=== PATIENT | male | born 1965 | race African-American/Black ===

== ENCOUNTER 2019-02-27 16:09 | Inpatient (IN) | payer MEDICARE, MEDICAID ==
[~2019-02-27] VITALS: Ht 170.2 cm; Wt 59.4 kg
[2019-02-27 17:15] VITALS: BP 122/87
[2019-02-27] MEDS ORDERED: MAG HYDROX/AL HYDROX/SIMETH 30 ML LIQUID UDC PO PRN (17:30)
[2019-02-27] MEDS ORDERED: TEMAZEPAM 7.5 MG CAPSULE PO PRN (17:30)
[2019-02-27] MEDS ORDERED: ACETAMINOPHEN 325 MG TABLET PO PRN (17:30)
[2019-02-27] MEDS ORDERED: MAGNESIUM HYDROXIDE 30 ML LIQUID UDC PO PRN (17:30)
[2019-02-27 21:09] VITALS: BP 114/67
[2019-02-28 07:09] LABS: BASOPHILS % (AUTO) 0.5 % (0.0-2.0); EOSINOPHILS # (AUTO) 0.1 K/uL (0.0-0.7); EOSINOPHILS % (AUTO) 1.5 % (0.0-7.0); HEMATOCRIT 37.6 % (36.7-47.1); HEMOGLOBIN 12.4 g/dL (12.5-16.3); LYMPHOCYTES # (AUTO) 1.3 K/uL (20.0-40.0); LYMPHOCYTES % (AUTO) 35.3 % (20.5-51.5); MEAN CORPUSCULAR HEMOGLOBIN 29.9 uug (23.8-33.4); MEAN CORPUSCULAR HGB CONC 33 g/dL (32.5-36.3); MEAN CORPUSCULAR VOLUME 90.7 fL (73.0-96.2); MONOCYTES # (AUTO) 0.3 K/uL (2.0-10.0); MONOCYTES % (AUTO) 8.1 % (0.0-11.0); NEUTROPHILS # (AUTO) 2.1 K/uL (1.8-8.9); NEUTROPHILS % (AUTO) 54.6 % (38.5-71.5); PLATELET COUNT (AUTO) 292 K/uL (152-348); RED BLOOD CELL COUNT(AUTO) 4.15 MIL/uL (4.06-5.63); WHITE BLOOD COUNT (AUTO) 3.8 K/uL (3.6-10.2)
[2019-02-28 07:17] LABS: POTASSIUM 3.8 mmol/L (3.5-5.1)
[2019-02-28 07:30] VITALS: BP 141/86
[2019-02-28] MEDS: DIVALPROEX SPRINKLE 125 MG CAP.SPRINK PO SCH ×2 (11:43→20:04)
[2019-02-28] MEDS: OLANZAPINE ZYDIS 5 MG TAB.RAPDIS PO SCH ×2 (11:43→18:03)
[2019-02-28] MEDS: LORAZEPAM 0.5 MG TABLET PO PRN (14:03)
[2019-02-28 16:00] VITALS: BP 119/56
[2019-02-28 20:00] VITALS: BP 110/67
[2019-03-01] MEDS: LORAZEPAM 0.5 MG TABLET PO PRN ×2 (06:13→14:23)
[2019-03-01 07:30] VITALS: BP 110/73
[2019-03-01] MEDS: DIVALPROEX SPRINKLE 125 MG CAP.SPRINK PO SCH ×2 (08:10→20:15)
[2019-03-01] MEDS: OLANZAPINE ZYDIS 5 MG TAB.RAPDIS PO SCH ×2 (08:10→16:47)
[2019-03-01 15:45] VITALS: BP 108/47
[2019-03-01 21:11] VITALS: BP 112/69
[2019-03-02 07:30] VITALS: BP 130/57
[2019-03-02] MEDS: OLANZAPINE ZYDIS 5 MG TAB.RAPDIS PO SCH ×2 (08:49→17:36)
[2019-03-02] MEDS: DIVALPROEX SPRINKLE 125 MG CAP.SPRINK PO SCH ×3 (08:49→17:37)
[2019-03-02 15:11] VITALS: BP 103/61
[2019-03-02 20:00] VITALS: BP 118/73
[2019-03-03 07:30] VITALS: BP 119/71
[2019-03-03] MEDS: DIVALPROEX SPRINKLE 125 MG CAP.SPRINK PO SCH ×3 (08:33→20:24)
[2019-03-03] MEDS: OLANZAPINE ZYDIS 5 MG TAB.RAPDIS PO SCH ×2 (08:33→20:25)
[2019-03-03 15:17] VITALS: BP 130/83
[2019-03-03 20:00] VITALS: BP 132/76
[2019-03-04 07:30] VITALS: BP 132/82
[2019-03-04] MEDS: DIVALPROEX SPRINKLE 125 MG CAP.SPRINK PO SCH ×3 (08:30→20:46)
[2019-03-04] MEDS: OLANZAPINE ZYDIS 5 MG TAB.RAPDIS PO SCH (08:30)
[2019-03-04 16:12] VITALS: BP 109/61
[2019-03-04 20:04] VITALS: BP 129/73
[2019-03-04] MEDS: OLANZAPINE 5 MG TABLET PO SCH (20:46)
[2019-03-04] MEDS: ATORVASTATIN 10 MG TABLET PO SCH (20:46)
[2019-03-05 07:30] VITALS: BP 135/69
[2019-03-05] MEDS: OLANZAPINE ZYDIS 5 MG TAB.RAPDIS PO SCH (09:50)
[2019-03-05] MEDS: DIVALPROEX SPRINKLE 125 MG CAP.SPRINK PO SCH ×3 (09:50→20:17)
[2019-03-05 16:00] VITALS: BP 97/52
[2019-03-05] MEDS: ATORVASTATIN 10 MG TABLET PO SCH (20:16)
[2019-03-05] MEDS: OLANZAPINE 5 MG TABLET PO SCH (20:17)
[2019-03-05 21:34] VITALS: BP 130/83
[2019-03-06 07:30] VITALS: BP 124/82
[2019-03-06] MEDS: DIVALPROEX SPRINKLE 125 MG CAP.SPRINK PO SCH ×3 (08:35→20:21)
[2019-03-06] MEDS: OLANZAPINE ZYDIS 5 MG TAB.RAPDIS PO SCH (08:35)
[2019-03-06 13:53] LABS: *BILIRUBIN,URIN NEGATIVE (NEGATIVE); *BLOOD, URINE NEGATIVE (NEGATIVE); *CLARITY,URINE CLEAR (CLEAR); *COLOR,URINE YELLOW (YELLOW); *KETONES,URINE NEGATIVE (NEGATIVE); *UROBILINOGEN,URINE 0.2 E.U./dl (NORMAL); LEUKOCYTE ESTERASE ,URINE NEGATIVE (NEGATIVE); NITRITE, URINE NEGATIVE (NEGATIVE); UGLUCOSE NEGATIVE (NEGATIVE)
[2019-03-06 16:07] VITALS: BP 115/66
[2019-03-06] MEDS: OLANZAPINE 5 MG TABLET PO SCH (20:21)
[2019-03-06] MEDS: ATORVASTATIN 10 MG TABLET PO SCH (20:21)
[2019-03-06 22:36] VITALS: BP 132/83
[2019-03-07 07:30] VITALS: BP 131/80
[2019-03-07] MEDS: DIVALPROEX SPRINKLE 125 MG CAP.SPRINK PO SCH ×3 (08:59→21:00)
[2019-03-07] MEDS: OLANZAPINE ZYDIS 5 MG TAB.RAPDIS PO SCH (09:00)
[2019-03-07 16:00] VITALS: BP 117/81
[2019-03-07 19:49] VITALS: BP 125/75
[2019-03-07] MEDS: ATORVASTATIN 10 MG TABLET PO SCH (21:00)
[2019-03-07] MEDS: OLANZAPINE 5 MG TABLET PO SCH (21:00)
[2019-03-08 07:30] VITALS: BP 140/79
[2019-03-08] MEDS: DIVALPROEX SPRINKLE 125 MG CAP.SPRINK PO SCH ×3 (08:20→21:08)
[2019-03-08] MEDS: OLANZAPINE ZYDIS 5 MG TAB.RAPDIS PO SCH (08:20)
[2019-03-08 16:00] VITALS: BP 119/65
[2019-03-08 19:49] VITALS: BP 114/70
[2019-03-08] MEDS: OLANZAPINE 5 MG TABLET PO SCH (21:08)
[2019-03-08] MEDS: ATORVASTATIN 10 MG TABLET PO SCH (21:08)
[2019-03-09 07:40] VITALS: BP 121/80
[2019-03-09] MEDS: DIVALPROEX SPRINKLE 125 MG CAP.SPRINK PO SCH ×3 (08:12→20:35)
[2019-03-09] MEDS: OLANZAPINE ZYDIS 5 MG TAB.RAPDIS PO SCH (08:12)
[2019-03-09 15:34] VITALS: BP 106/52
[2019-03-09 19:44] VITALS: BP 111/75
[2019-03-09] MEDS: ATORVASTATIN 10 MG TABLET PO SCH (20:35)
[2019-03-09] MEDS: OLANZAPINE 5 MG TABLET PO SCH (20:35)
[2019-03-10 07:30] VITALS: BP 128/85
[2019-03-10] MEDS: DIVALPROEX SPRINKLE 125 MG CAP.SPRINK PO SCH ×4 (08:31→23:30)
[2019-03-10] MEDS: OLANZAPINE ZYDIS 5 MG TAB.RAPDIS PO SCH (08:31)
[2019-03-10] MEDS: LORAZEPAM 0.5 MG TABLET PO PRN (09:40)
[2019-03-10 16:00] VITALS: BP 117/74
[2019-03-10 19:45] VITALS: BP 97/56
[2019-03-10] MEDS: OLANZAPINE 5 MG TABLET PO SCH ×2 (20:23→23:30)
[2019-03-10] MEDS: ATORVASTATIN 10 MG TABLET PO SCH ×2 (20:23→23:30)
[2019-03-11 07:30] VITALS: BP 132/91
[2019-03-11] MEDS: OLANZAPINE ZYDIS 5 MG TAB.RAPDIS PO SCH (08:22)
[2019-03-11] MEDS: DIVALPROEX SPRINKLE 125 MG CAP.SPRINK PO SCH (08:22)
[2019-03-11 15:15] VITALS: BP 117/79
== END 2019-03-11 15:27 | DRG 885 ==
LOC: ER 16:11 → GPS 17:02
PROVIDERS: ADMIT Psychiatry & Neurology Psychiatry; ATTEND Registered Nurse
DX: F20.0 Paranoid schizophrenia (principal); Z59.0 Homelessness; E78.00 Pure hypercholesterolemia, unspecified; R94.31 Abnormal electrocardiogram [ECG] [EKG]
CPT/HCPCS: 36415; 85025; 93005; A4663